=== PATIENT | female | born 1975 | race Caucasian/White ===

== ENCOUNTER 2022-01-10 12:53 | Emergency (ER) | payer MEDICAID, OTHER ==
[2012-10-25 12:50] VITALS: BP 134/74
--- NOTE | 2022-01-10 13:40 | ERPHSYRPT ---
- History of Present Illness Source: patient Exam Limitations: no limitations Patient Subjective Stated Complaint: " My leg started swelling yesterday while I was at work and it's getting worse." Triage Nursing Assessment: Pt presents to ER with complaints of left leg swel ling since yesterday. Pt denies pain. Noted obvious swelling to entire left leg, redness and firmness noted. No obvious streaking or pitting edema. Pt states there is some numbness and tingling to leg. Pt is alert and oriented x 3. Respirations are easy and unlabored. Denies any further complaints of issues at this time. Pt has no history is blood clots but is current smoker. Physician History: 46 yo wf w LLE edema x1day. Pt denies leg pain/dyspnea/chest pain/ho DVT/injury Method of Injury: unknown Occurred: yesterday Quality: other (No pain) Lower Extremities Pain: leg: left, thigh: left Modifying Factors: Improves With: nothing Associated Symptoms: none, No unable to bear weight, No dizzy, No fainted, No seizure, No snapping sensation, No popping sensation Allergies/Adverse Reactions: erythromycin base [Erythromycin Base] Allergy (Verified 01/10/22 13:19) usnure -from childhood penicillin G Allergy (Verified 01/10/22 13:19) unsure-from childhood Hx Tetanus, Diphtheria Vaccination/Date Given: No Hx Influenza Vaccination/Date Given: No Hx Pneumococcal Vaccination/Date Given: No Immunizations Up to Date: No Travel Risk - International Travel Have you traveled outside of the country in past 3 weeks: No - Coronavirus Screening Are you exhibiting any of the following symptoms?: No Close contact with a COVID-19 positive Pt in past 14-21 Days: No - Vaccine Status Have you recieved a Covid-19 vaccination: No - Review of Systems Constitutional: No Symptoms Eyes: No Symptoms Ears, Nose, & Throat: No Symptoms Respiratory: No Symptoms Cardiac: No Symptoms Abdominal/Gastrointestinal: No Symptoms Genitourinary Symptoms: No Symptoms Musculoskeletal: Other (L calf edema) Skin: No Symptoms Neurological: No Symptoms Psychological: No Symptoms Endocrine: No Symptoms Hematologic/Lymphatic: No Symptoms Immunological/Allergic: No Symptoms - Past Medical History Pertinent Past Medical History: No ENT History: Other (see history of present illness patient is a long no-no for her severe dental caries and gingivitis.) Other Medical History: fibriod tumor - Past Surgical History Past Surgical History: Yes Musculoskeletal: Orthopedic Surgery Other Surgical History: carpal tunnel - Social History Smoking Status: Current every day smoker How long have you smoked: yrs Exposure to second hand smoke: No Drug Use: none Patient Lives Alone: No Significant Family History: no pertinent family hx - Female History Hx Last Menstrual Period: 12/25/21 Hx Now: No - Nursing Vital Signs Nursing Vital Signs: Initial Vital Signs Temperature 96.8 F 01/10/22 13:14 Pulse Rate 99 H 01/10/22 13:14 Respiratory Rate 20 01/10/22 13:14 Blood Pressure 138/81 01/10/22 13:14 O2 Sat by Pulse Oximetry 100 01/10/22 13:14 Pain Scale Pain Intensity 0 WNL - Physical Exam General Appearance: no apparent distress Eyes, Ears, Nose, Throat Exam: normal ENT inspection, TMs normal, pharynx normal, moist mucous membranes Neck Exam: normal inspection, non-tender, supple, full range of motion, No Brudzinski, No Kernig's, No meningismus Cardiovascular/Respiratory Exam: normal breath sounds, regular rate/rhythm, heart sounds normal, No murmur Gastrointestinal/Abdominal Exam: non-tender, soft, no organomegaly Back Exam: normal inspection, normal range of motion, No CVA tenderness Hips Exam: bilateral: non-tender, normal inspection, normal range of motion Legs Exam: left leg: swelling (L calf edema/NTTP/No erythema/Good pedal pulse, distal sensation, and capillary return) Knees Exam: left knee: swelling Ankle Exam: left ankle: swelling Foot Exam: left foot: swelling DTR - Lower Extremities Exam: knee (R): 2+, knee (L): 2+ Neuro/Tendon Exam: normal sensation, normal motor functions, normal tendon functions, responds to pain Mental Status Exam: alert, oriented x 3, cooperative Skin Exam: normal color, warm, dry SpO2 Interpretation: normal SpO2: 100 O2 Delivery: Room Air - Course Nursing assessment & vital signs reviewed: Yes - Radiology Ultrasound Exam Venous Lower Extremity Ultrasound: discussed w/radiologist (Diffuse nonoccluding DVT's LLE), Other (Tech stated extensive DVT) Ordered Tests: Active Orders 24 hr Category Date Time Status VENOUS UNILAT/LIMITED EXTREMIT [US] Stat Exams 01/10/22 13:35 Completed - Progress Progress Note: 01/10/22 14:05 After risk/benefit explanation of Coumadin vs Eliquis, pt decided to start Eliquis Counseled pt/family regarding: diagnosis, need for follow-up, rad results - Departure Departure Disposition: Home Clinical Impression: DVT (deep venous thrombosis) Condition: Stable Critical Care Time: No Referrals: EMILY KAUR [ACTIVE STAFF] - Follow up/PCP as directed Instructions: Deep Vein Thrombosis (Blood Clots in the Legs) Additional Instructions: Start Eliquis twice a day(10mg twice a day for 1 week, then 5mg twice a day) Follow up with your family MD in 1-2 days Return to ER for chest pain or shortness of breath Prescriptions: Apixaban [Eliquis] 5 mg PO BID #60
--- NOTE | 2022-01-10 14:18 | XRAY ---
Indication: Edema. Two-dimensional sonogram and color Doppler imaging of the major venous vessels of the left leg performed. Comparison: None Scattered nonoccluding thrombi in the visualized common femoral, greater saphenous, femoral, popliteal, and posterior tibial veins. Impression: Diffuse nonoccluding DVTs.
[2022-01-10 14:20] VITALS: BP 119/71; PULSE 88
[2022-01-10 18:38] VITALS: O2SAT 100
== END 2022-01-10 14:20 | disposition home or self-care (01) ==
LOC: ED 12:53
DX: I82.402 Acute embolism and thrombosis of unspecified deep veins of left lower extremity (principal); Z72.0 Tobacco use; Z79.01 Long term (current) use of anticoagulants
CPT/HCPCS: 93971; 99283

== ENCOUNTER 2022-01-14 15:54 | Observation (INO) | payer MEDICAID ==
[2022-01-14] MEDS ORDERED: Sodium Chloride 0.9% 1000 ML 1,000 ML IV SCH (16:15)
--- NOTE | 2022-01-14 16:34 | XRAY ---
Indication: Chest pain. Comparison: None Portable chest demonstrates minimal bibasilar subsegmental atelectasis/scarring. Remaining heart, upper lungs, and bony thorax unremarkable.
[2022-01-14] MEDS ORDERED: Sodium Chloride 0.9% 1000 ML 1,000 ML ONE ×2 (16:38→22:35)
[2022-01-14 17:19] LABS: Absolute Neutrophil Ct (ANC) 7.37 (1.4-6.9); Basophil (Absolute #) 0.03 (0-0.4); Eosinophil % 2.7 % (0.00-5.0); Eosinophil (Absolute #) 0.26 (0-0.5); Hematocrit 23.7 % (35-47); Lymphocyte (Absolute #) 1.22 (1.0-4.6); Lymphocytes % 12.5 % (24.0-44.0); Mean Cell Volume 64.6 fl (78-100); Mean Corpuscular Hemoglobin 17.2 pg (26-32); Mean Corpuscular Hgb Concent. 26.6 g/dl (32-36); Mean Platelet Volume 9.6 fl (7.5-11.0); Monocyte (Absolute #) 0.91 (0.0-1.3); Monocytes % 9.3 % (0.0-12.0); Neutrophil % 75.2 % (36.0-66.0); Platelet Count 255 K/mm3 (150-450); Red Blood Count 3.67 M/mm3 (4.1-5.4); Red Cell Distribution Width 18.8 % (11.5-14.0); White Blood Count 9.8 K/mm3 (4.0-10.5)
[2022-01-14 17:24] LABS: ALBUMIN 3.9 g/dL (3.5-5.0); ALKALINE PHOSPHATASE 78 U/L (38-126); ANION GAP 12.1 MEQ/L (5-15); BLOOD UREA NITROGEN 9 mg/dL (7-17); CHLORIDE 100 mmol/L (98-107); Calcium 8.6 mg/dL (8.4-10.2); Carbon Dioxide 26 mmol/L (22-30); Creatinine 1 0.53 mg/dL (0.52-1.04); EST GLOMERULAR FILTRATION RATE > 60.0 ML/MIN; Glucose 98 mg/dL (74-106); NT PRO BNP 64.3 pg/mL (0-450); SGOT/AST 23 U/L (14-36); SGPT/ALT 7 U/L (0-35); SODIUM 134 mmol/L (137-145); Total Protein 7.3 g/dL (6.3-8.2)
[2022-01-14 17:25] LABS: Hemoglobin 6.3 gm/dl (12.0-16.0)
--- NOTE | 2022-01-14 18:11 | ERPHSYRPT ---
- History of Present Illness Time Seen by Provider: 01/14/22 16:05 Source: patient Exam Limitations: no limitations Patient Subjective Stated Complaint: Chest pain/SOB Triage Nursing Assessment: Patient ambulated back to ED and transferred self to bed. Patient A+O X3. Patient's skin pink, warm and dry. Patient states 30 min prior to coming into ED she started having chest discomfort in the middle of chest and left shoulder pain 5/10. Patient states she has pain when taking a deep breath. Patient dx with DVT in left leg last week. Lungs clear a/p marissa. 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 She was started on Eliquis she is presently on 10 mg twice a day. Today she developed some substernal chest pain which went to the left shoulder. She has not had a CTA because 7 or 9 members of her family have had severe reactions to the dye including what she claims is to . Timing/Duration: today Activities at Onset: none Possible Cause: no prior episodes Associated Symptoms: chest pain/discomfort, lightheadedness, leg swelling Allergies/Adverse Reactions: erythromycin base [Erythromycin Base] Allergy (Verified 01/14/22 15:55) usnure -from childhood penicillin G Allergy (Verified 01/14/22 15:55) unsure-from childhood Hx Tetanus, Diphtheria Vaccination/Date Given: No Hx Influenza Vaccination/Date Given: No Hx Pneumococcal Vaccination/Date Given: No Immunizations Up to Date: Yes Travel Risk - International Travel Have you traveled outside of the country in past 3 weeks: No - Coronavirus Screening Are you exhibiting any of the following symptoms?: No - Vaccine Status Have you recieved a Covid-19 vaccination: No - Review of Systems Constitutional: Weakness, No Fever, No Chills Eyes: No Symptoms Ears, Nose, & Throat: No Symptoms Respiratory: Dyspnea, Dyspnea on Exertion (COLLIER) Cardiac: Chest Pain Abdominal/Gastrointestinal: Abdominal Pain, No Melena Genitourinary Symptoms: No Dysuria Musculoskeletal: No Back Pain, No Neck Pain Skin: No Rash Neurological: No Dizziness, No Focal Weakness, No Sensory Changes Psychological: No Symptoms Endocrine: No Symptoms All Other Systems: Reviewed and Negative - Past Medical History Pertinent Past Medical History: No ENT History: Other Other Medical History: fibriod tumor - Past Surgical History Past Surgical History: Yes Musculoskeletal: Orthopedic Surgery Other Surgical History: carpal tunnel - Social History Smoking Status: Current every day smoker How long have you smoked: yrs Exposure to second hand smoke: No Drug Use: none Patient Lives Alone: No Significant Family History: no pertinent family hx - Female History Hx Last Menstrual Period: 2 weeks ago Hx Now: No - Nursing Vital Signs Nursing Vital Signs: Initial Vital Signs Temperature 98.4 F 01/14/22 15:57 Pulse Rate 103 H 01/14/22 15:57 Respiratory Rate 18 01/14/22 15:57 Blood Pressure 118/62 01/14/22 15:57 O2 Sat by Pulse Oximetry 100 01/14/22 15:57 Pain Scale Pain Intensity 5 - Physical Exam General Appearance: no apparent distress, alert Eye Exam: PERRL/EOMI, pale conjunctivae Neck Exam: normal inspection, supple Cardiovascular/Chest Exam: normal heart sounds, regular rate/rhythm Abdominal/Gastrointestinal Exam: soft, distention, other (Large mass reportedly a fibroid palpable), No tenderness, No mass Extremity Exam: non-tender, normal range of motion, normal inspection, no calf tenderness, no pedal edema Neurologic Exam: alert, oriented x 3, cooperative, staple side laster II-XII nml as tested, sensation nml, No motor deficits Skin Exam: normal color, warm, No dry SpO2 Interpretation: normal SpO2: 100 O2 Delivery: Room Air - Course Nursing assessment & vital signs reviewed: Yes EKG Interpreted by Me: RATE (102), Sinus Tach, NORMAL AXIS, NORMAL INTERVALS, NORMAL QRS, NORMAL ST-T - Radiology Exams Chest X-ray Interpretation: Interpreted by me, Other (There is opacities in the right lower lung field that may represent atelectasis.) Ordered Tests: Active Orders 24 hr Category Date Time Status CHEST 1 VIEW (PORTABLE) Stat Exams 01/14/22 16:07 Completed CBC W DIFF Stat Lab 01/14/22 16:06 Completed CMP Stat Lab 01/14/22 17:00 Completed D-DIMER QUANTITATIVE Stat Lab 01/14/22 17:00 Completed Lactic Acid Stat Lab 01/14/22 16:15 Completed NT PRO BNP Stat Lab 01/14/22 17:00 Completed TROPONIN Q3H Lab 01/14/22 17:00 Completed TROPONIN Q3H Lab 01/14/22 19:15 Ordered TROPONIN Q3H Lab 01/14/22 22:15 Ordered TROPONIN Q3H Lab 01/15/22 01:15 Ordered TROPONIN Q3H Lab 01/15/22 04:15 Ordered UA W/RFX UR CULTURE Stat Lab 01/14/22 16:07 Ordered Medication Summary Generic Name Dose Route Start Last Admin Trade Name Bull PRN Reason Stop Dose Admin Sodium Chloride 1,000 mls @ 100 mls/hr 01/14/22 16:15 01/14/22 16:40 Sodium Chloride 0.9% 1000 Ml IV 02/13/22 16:14 100 mls/hr .Q10H PASTORA Administration Lab/Rad Data: Laboratory Result Diagrams 01/14/22 16:06 01/14/22 17:00 Laboratory Results 01/14/22 01/14/22 01/14/22 Range/Units 17:00 17:00 17:00 WBC (4.0-10.5) K/mm3 RBC (4.1-5.4) M/mm3 Hgb (12.0-16.0) gm/dl Hct (35-47) % MCV (78-100) fl MCH (26-32) pg MCHC (32-36) g/dl RDW (11.5-14.0) % Plt Count (150-450) K/mm3 MPV (7.5-11.0) fl Gran % (36.0-66.0) % Eos # (Auto) (0-0.5) Absolute Lymphs (auto) (1.0-4.6) Absolute Monos (auto) (0.0-1.3) Lymphocytes % (24.0-44.0) % Monocytes % (0.0-12.0) % Eosinophils % (0.00-5.0) % Basophils % (0.0-0.4) % Absolute Granulocytes (1.4-6.9) Basophils # (0-0.4) D-Dimer 1723 H* (215-500) ng/mL Sodium 134 L (137-145) mmol/L Potassium 4.0 (3.5-5.1) mmol/L Chloride 100 (98-107) mmol/L Carbon Dioxide 26 (22-30) mmol/L Anion Gap 12.1 (5-15) MEQ/L BUN 9 (7-17) mg/dL Creatinine 0.53 (0.52-1.04) mg/dL Estimated GFR > 60.0 ML/MIN Glucose 98 (74-106) mg/dL Lactic Acid (0.4-2.0) Calcium 8.6 (8.4-10.2) mg/dL Total Bilirubin 0.70 (0.2-1.3) mg/dL AST 23 (14-36) U/L ALT 7 (0-35) U/L Alkaline Phosphatase 78 (38-126) U/L Troponin I < 0.012 (0.000-0.034) ng/mL NT-Pro-B Natriuret Pep 64.3 (0-450) pg/mL Serum Total Protein 7.3 (6.3-8.2) g/dL Albumin 3.9 (3.5-5.0) g/dL 01/14/22 01/14/22 Range/Units 16:15 16:06 WBC 9.8 (4.0-10.5) K/mm3 RBC 3.67 L (4.1-5.4) M/mm3 Hgb 6.3 L* (12.0-16.0) gm/dl Hct 23.7 L (35-47) % MCV 64.6 L (78-100) fl MCH 17.2 L (26-32) pg MCHC 26.6 L (32-36) g/dl RDW 18.8 H (11.5-14.0) % Plt Count 255 (150-450) K/mm3 MPV 9.6 (7.5-11.0) fl Gran % 75.2 H (36.0-66.0) % Eos # (Auto) 0.26 (0-0.5) Absolute Lymphs (auto) 1.22 (1.0-4.6) Absolute Monos (auto) 0.91 (0.0-1.3) Lymphocytes % 12.5 L (24.0-44.0) % Monocytes % 9.3 (0.0-12.0) % Eosinophils % 2.7 (0.00-5.0) % Basophils % 0.3 (0.0-0.4) % Absolute Granulocytes 7.37 H (1.4-6.9) Basophils # 0.03 (0-0.4) D-Dimer (215-500) ng/mL Sodium (137-145) mmol/L Potassium (3.5-5.1) mmol/L Chloride (98-107) mmol/L Carbon Dioxide (22-30) mmol/L Anion Gap (5-15) MEQ/L BUN (7-17) mg/dL Creatinine (0.52-1.04) mg/dL Estimated GFR ML/MIN Glucose (74-106) mg/dL Lactic Acid 0.9 (0.4-2.0) Calcium (8.4-10.2) mg/dL Total Bilirubin (0.2-1.3) mg/dL AST (14-36) U/L ALT (0-35) U/L Alkaline Phosphatase (38-126) U/L Troponin I (0.000-0.034) ng/mL NT-Pro-B Natriuret Pep (0-450) pg/mL Serum Total Protein (6.3-8.2) g/dL Albumin (3.5-5.0) g/dL - Progress Progress: unchanged Air Movement: good Blood Culture(s) Obtained: No Antibiotics given: No - Departure Departure Disposition: Observation Clinical Impression: Anemia Condition: Fair Critical Care Time: No Referrals: RIA CROWLEY MD [Primary Care Provider] - Follow up/PCP as directed Instructions: Chest Pain (DC)
[2022-01-14 19:39] LABS: INFLUENZA A NEGATIVE (NEGATIVE); INFLUENZA B NEGATIVE (NEGATIVE); RESPIRATORY SYNCTIAL VIRUS NEGATIVE (Negative); SARS-CoV-2 Xpert Express NEGATIVE (NEGATIVE)
[2022-01-14 21:03] LABS: CROSS MATCH (PRBC) COMPATIBLE (COMPATIBLE)
[2022-01-14 21:05] LABS: ABO TYPING O; Antibody Screen NEGATIVE (NEGATIVE); RH TYPING POSITIVE
[2022-01-15 04:08] VITALS: BP 117/60; PULSE 76; O2SAT 99
[2022-01-15 05:12] LABS: Absolute Neutrophil Ct (ANC) 7.93 (1.4-6.9); Basophil (Absolute #) 0.02 (0-0.4); Eosinophil % 2.4 % (0.00-5.0); Eosinophil (Absolute #) 0.26 (0-0.5); Hematocrit 28.5 % (35-47); Lymphocyte (Absolute #) 1.58 (1.0-4.6); Lymphocytes % 14.5 % (24.0-44.0); Mean Cell Volume 67.2 fl (78-100); Mean Corpuscular Hemoglobin 19.1 pg (26-32); Mean Corpuscular Hgb Concent. 28.4 g/dl (32-36); Mean Platelet Volume 9.5 fl (7.5-11.0); Monocytes % 10.1 % (0.0-12.0); Neutrophil % 72.8 % (36.0-66.0); Platelet Count 250 K/mm3 (150-450); Red Blood Count 4.24 M/mm3 (4.1-5.4); Red Cell Distribution Width 21.4 % (11.5-14.0); White Blood Count 10.9 K/mm3 (4.0-10.5)
[2022-01-15 05:18] LABS: Hemoglobin 8.1 gm/dl (12.0-16.0)
[2022-01-15 06:40] LABS: Slide Review 1 YES
--- NOTE | 2022-01-17 08:54 | PCM.SSS ---
History of Present Illness - Chief Complaint Chief Complaint: anemia Date: 01/16/22 History of Present Illness: is a 46 year old female. History obtained through er records, Pt. presented with sob and found to be anemic. 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 - Review of Systems Respiratory: Short Of Breath (note ros obtained from chart of ER physician) Medications & Allergies Home Medications: Home Medication List Apixaban [Eliquis] 5 mg PO BID #60 01/10/22 [Rx Confirmed 01/14/22] Allergies/Adverse Reactions: Allergies Allergy/AdvReac Type Severity Reaction Status Date / Time erythromycin base Allergy Verified 01/14/22 20:42 [Erythromycin Base] penicillin G Allergy Verified 01/14/22 20:42 - Past Medical History Past Medical History: No Neurological History: No Pertinent History ENT History: No Pertinent History, Other Cardiac History: No Pertinent History Respiratory History: No Pertinent History Endocrine Medical History: No Pertinent History Musculoskelatal History: No Pertinent History GI Medical History: No Pertinent History History: No Pertinent History Pyscho-Social History: No Pertinent History Reproductive Disorders: No Pertinent History Comment: fibriod tumor - Female History Hx Last Menstrual Period: 2 weeks ago Are you now?: No - Past Surgical History Past Surgical History: Yes Neuro Surgical History: No Pertinent History Cardiac History: No Pertinent History Respiratory Surgery: No Pertinent History GI Surgical History: No Pertinent History Genitourinary Surgical Hx: No Pertinent History Musculskeletal Surgical Hx: Orthopedic Surgery Female Surgical History: No Pertinent History Other Surgical History: carpal tunnel, trigger thumb release - Social History Smoking Status: Current every day smoker How long have you smoked: 29 years Exposure to second hand smoke: Yes Alcohol: None Drug Use: none Significant Family History: no pertinent family hx - Physical Exam Additional Findings: 01/17/22 08:52 see ER record, unable to see patient prior to her departure. Assessment/Plan (1) Anemia Status: Acute Code(s): D64.9 - ANEMIA, UNSPECIFIED (2) DVT (deep venous thrombosis) Status: Acute Code(s): I82.409 - ACUTE EMBOLISM AND THOMBOS UNSP DEEP VN UNSP LOWER EXTREMITY Hospital Summary - Hospital Course Hospital Course: Pt. admitted and after receiving her infusion of pRBC's and signed out AMA prior to my morning arrival. - Vitals & Intake/Output Vital Signs: Vital Signs Temperature 97.5 F 01/15/22 04:00 Pulse Rate 76 01/15/22 04:00 Respiratory Rate 16 01/15/22 04:00 Blood Pressure 117/60 01/15/22 04:00 O2 Sat by Pulse Oximetry 99 01/15/22 04:00 Intake & Output: Intake & Output 01/14/22 01/15/22 01/16/22 01/17/22 11:59 11:59 11:59 11:59 Intake Total 360 Output Total 500 Balance -140 Weight 83.4 kg - Lab Result Diagrams: 01/15/22 05:01 01/14/22 17:00 - Procedures and Test Procedures and Tests throughout Hospitalization: Therapy Orders & Screens 01/14/22 21:03 Smoking Cessation Education ONCE Comment: Diagnosis: anemia Smoking Status: Current every day smoker How long have you smoked: 29 years Approximately how many cigarettes per day: 10 Do you dip or chew tobacco: No - Discharge Discharge Date: 01/16/22 Disposition: Home, Self-Care Condition: Stable Prescriptions: No Action Apixaban [Eliquis] 5 mg PO BID #60 Forms: Discharge Instructions, Outpatient Follow-up Labs/Proc
== END 2022-01-15 06:10 | disposition home or self-care (01) ==
LOC: ED 15:54 → MED SURG 20:34
PROVIDERS: ADMIT Family Medicine; ATTEND Family Medicine
DX: D64.9 Anemia, unspecified (principal); R07.9 Chest pain, unspecified; I82.402 Acute embolism and thrombosis of unspecified deep veins of left lower extremity; D25.9 Leiomyoma of uterus, unspecified; Z20.828 Contact with and (suspected) exposure to other viral communicable diseases; Z79.01 Long term (current) use of anticoagulants; Z72.0 Tobacco use
CPT/HCPCS: 0241U; 36415; 36430; 71045; 80053; 83605; 83880; 84484; 85025; 85379; 86850; 86900; 86901; 86922; 99285; G0378; P9016

== ENCOUNTER 2022-12-15 09:55 | Emergency (ER) | payer OTHER ==
[2022-12-15 10:13] VITALS: BP 156/85; PULSE 88; O2SAT 97
--- NOTE | 2022-12-15 10:39 | ERPHSYRPT ---
- History of Present Illness Source: patient Exam Limitations: no limitations Patient Subjective Stated Complaint: pt here for swelling to left side of face this morning, is to have teeth pulled december 25 Triage Nursing Assessment: pt alert, resp easy, face mask in place, swelling to left side of face, has multi broken tetth Physician History: 47 yo WF w L mandibular edema today. Pain is minimal at best. She has an appointment for full dental extraction in the future. Pt has no trismus and fever is denied. Timing/Duration: abrupt onset Severity: mild ENT Location: facial, dental Prearrival Treatment: no prearrival treatment Modifying Factors: Improves With: nothing Associated Symptoms: denies symptoms Allergies/Adverse Reactions: erythromycin base [Erythromycin Base] Allergy (Verified 12/15/22 10:06) usnure -from childhood penicillin G Allergy (Verified 12/15/22 10:06) unsure-from childhood Home Medications: Iron,Carb/Vit C/Vit B12/Folic [Iron 100 Plus Tablet] 1 ea DAILY 12/15/22 [History] Hx Tetanus, Diphtheria Vaccination/Date Given: No Hx Influenza Vaccination/Date Given: No Hx Pneumococcal Vaccination/Date Given: No Immunizations Up to Date: Yes Travel Risk - International Travel Have you traveled outside of the country in past 3 weeks: No - Coronavirus Screening Are you exhibiting any of the following symptoms?: No Close contact with a COVID-19 positive Pt in past 14-21 Days: No - Vaccine Status Have you recieved a Covid-19 vaccination: No - Review of Systems Constitutional: No Symptoms Eyes: No Symptoms Ears, Nose, & Throat: No Symptoms Respiratory: No Symptoms Cardiac: No Symptoms Abdominal/Gastrointestinal: No Symptoms Genitourinary Symptoms: No Symptoms Musculoskeletal: No Symptoms Skin: No Symptoms Neurological: No Symptoms Psychological: No Symptoms Endocrine: No Symptoms Hematologic/Lymphatic: No Symptoms Immunological/Allergic: No Symptoms - Past Medical History Pertinent Past Medical History: No Neurological History: No Pertinent History ENT History: No Pertinent History, Other Cardiac History: No Pertinent History Respiratory History: No Pertinent History Endocrine Medical History: No Pertinent History Musculoskeletal History: No Pertinent History GI Medical History: No Pertinent History History: No Pertinent History Psycho-Social History: No Pertinent History Female Reproductive Disorders: No Pertinent History Other Medical History: fibriod tumor.dvt left leg 2021 - Past Surgical History Past Surgical History: Yes Neuro Surgical History: No Pertinent History Cardiac: No Pertinent History Respiratory: No Pertinent History Gastrointestinal: No Pertinent History Genitourinary: No Pertinent History Musculoskeletal: Orthopedic Surgery Female Surgical History: No Pertinent History Other Surgical History: carpal tunnel, trigger thumb release - Social History Smoking Status: Current every day smoker How long have you smoked: 29 years Exposure to second hand smoke: Yes Drug Use: none Patient Lives Alone: Yes Significant Family History: no pertinent family hx - Female History Hx Last Menstrual Period: post Hx Now: No - Nursing Vital Signs Nursing Vital Signs: Initial Vital Signs Temperature 97.2 F 12/15/22 10:12 Pulse Rate 88 12/15/22 10:12 Respiratory Rate 18 12/15/22 10:12 Blood Pressure 156/85 12/15/22 10:12 O2 Sat by Pulse Oximetry 97 12/15/22 10:12 Pain Scale Pain Intensity 0 Hypertensive - Physical Exam General Appearance: no apparent distress Eye Exam: bilateral eye: normal inspection, PERRL, EOMI Ear Exam: bilateral ear: auricle normal, canal normal, TM normal Nasal Exam: normal inspection Throat Exam: pharynx normal, dental tenderness (Pt w multiple missing teeth and teeth eroding to the base), mandibular swelling, moist mucus membranes, No pharynx swelling, No tongue swollen Neck Exam: normal inspection, non-tender, supple, full range of motion, trachea midline Cardiovascular/Respiratory Exam: normal breath sounds, regular rate/rhythm, heart sounds normal Abdominal Exam: non-tender, soft, no organomegaly Neurologic Exam: alert, oriented x 3, cooperative, pipe bender II-XII nml as tested, normal mood/affect, nml cerebellar function, nml station & gait, sensation nml, No motor deficits, No sensory deficit Skin Exam: normal color, warm, dry, No rash SpO2 Interpretation: normal SpO2: 97 O2 Delivery: Room Air - Course Nursing assessment & vital signs reviewed: Yes - Progress Progress Note: 12/15/22 10:49 Nursing note and vital signs reviewed Pt refused all pain meds in ER and stated that she really did not have any pain No food or housing insecurities noted Pt able to obtain her meds and has a dentist for f/u. Counseled pt/family regarding: diagnosis, need for follow-up - Departure Departure Disposition: Home Clinical Impression: Dental abscess Condition: Stable Critical Care Time: No Referrals: RIA CROWLEY MD [Primary Care Provider] - Follow up/PCP as directed Instructions: Tooth Abscess (DC), Tooth Decay, Adult (DC), Dental Pain (DC) Additional Instructions: Dentist GENE Start Clindamycin Return to ER for worsening of condition Prescriptions: clindamycin HCL [Clindamycin HCl] 300 mg PO TID 7 Days #21 cap
== END 2022-12-15 10:50 | disposition home or self-care (01) ==
LOC: ED 09:55
DX: K04.7 Periapical abscess without sinus (principal); R22.1 Localized swelling, mass and lump, neck; Z28.310 Unvaccinated for COVID-19; Z72.0 Tobacco use
CPT/HCPCS: 99281